=== PATIENT | female | born 1950 | race Hispanic/Latino ===

== ENCOUNTER 2022-04-30 08:18 | Inpatient (IN) | payer MEDICARE, MEDICAID ==
[~2022-04-30] VITALS: Ht 152.4 cm; Wt 63.5 kg
[2022-04-30] MEDS ORDERED: ONDANSETRON HCL INJ 2MG/ML 2ML 2 MG/ML VIAL IV STA (08:33)
[2022-04-30] MEDS ORDERED: SODIUM CHLORIDE 0.9% 1000ML 1,000 ML IV ONE (08:45)
[2022-04-30 08:58] LABS: BASOPHILS # (AUTO) 0.1 (0.0-0.1); BASOPHILS % 0.6 % (0.0-1.0); EOSINOPHILS # (AUTO) 0.1 (0.0-0.4); EOSINOPHILS % 0.7 % (0.0-6.0); HEMOGLOBIN 12.8 g/dL (12.0-16.0); LYMPHOCYTES # (AUTO) 1.8 (1.0-3.2); LYMPHOCYTES % 10.5 % (18.0-39.1); MEAN CORPUSCULAR HEMOGLOBIN 30.8 pg (28-32); MEAN CORPUSCULAR HGB CONC 34.6 g/dL (31-35); MEAN CORPUSCULAR VOLUME 89.2 fL (81-99); MONOCYTES % 5.6 % (4.4-11.3); NEUTROPHILS # (AUTO) 12.5 (2.1-6.9); PLATELET COUNT 287 x10e3/uL (140-360); RED BLOOD COUNT 4.15 x10e6/uL (3.6-5.1); RED CELL DISTRIBUTION WIDTH 14.6 % (11.7-14.4)
[2022-04-30 09:35] LABS: ALBUMIN 2.6 g/dL (3.5-5.0); ALBUMIN/GLOBULIN RATIO 0.5 (0.8-2.0); ANION GAP 17.5 mmol/L (8-16); CALCIUM 9.7 mg/dL (8.4-10.2); CREATININE, SERUM 0.93 mg/dL (0.57-1.11); POTASSIUM 3.5 mmol/L (3.5-5.1)
[2022-04-30 09:56] LABS: CLARITY,URINE HAZY (CLEAR); COLOR,URINE YELLOW (YELLOW); KETONES,URINE 1+ (NEGATIVE); LEUKOCYTE ESTERASE ,URINE LARGE (NEGATIVE); NITRITE,URINE NEGATIVE (NEGATIVE); PROTEIN,URINE DIPSTICK 2+ (NEGATIVE); URINE UROBILINOGEN 0.2 mg/dL (0.2 - 1); WBC,URINE (MAN) >50 /HPF (0-5)
[2022-04-30 09:57] LABS: BACTERIA,URINE MODERATE /HPF; EPITHELIAL CELLS,URINE MANY /LPF; RBC,URINE 0-5 /HPF (0-5)
[2022-04-30] MEDS ORDERED: IOPAMIDOL 370 MG/ML 100 ML INFUS..BTL INJ ONE ×2 (10:14→11:07)
[2022-04-30 10:16] LABS: BAND NEUTROPHILS % (MANUAL) 10 %; EOSINOPHILS % (MANUAL) 1 % (0-7); LYMPHOCYTES % (MANUAL) 13 % (19-48); METAMYELOCYTES % (MANUAL) 2 % (0-0); MONOCYTES % (MANUAL) 5 % (3.4-9.0); NEUTROPHILS % (MANUAL) 69 % (40-74)
[2022-04-30 10:17] LABS: PLATELET ESTIMATE ADEQUATE; PLATELET MORPHOLOGY COMMENT NORMAL; RBC MORPHOLOGY COMMENT NORMAL
[2022-04-30] MEDS ORDERED: CEFTRIAXONE 1 GM VIAL IV ONE (11:15)
[2022-04-30] MEDS ORDERED: CEFTRIAXONE 1 GM in SODIUM CHLORIDE 0.9% 100 ML IV ONE (11:30)
[2022-04-30] MEDS ORDERED: LEVOFLOXACIN 750MG/D5W 150ML 150 ML IV ONE (11:45)
[2022-04-30] MEDS ORDERED: ONDANSETRON HCL INJ 2MG/ML 2ML 2 MG/ML VIAL IV PRN (12:00)
[2022-04-30] MEDS ORDERED: METRONIDAZOLE 500MG/NS 100ML 100 ML IV ONE (12:00)
[2022-04-30] MEDS ORDERED: Morphine 4mg INJECTION 4 MG/ML INJ IV PRN (12:00)
[2022-04-30] MEDS: SODIUM CHLORIDE 0.9% 1000ML 1,000 ML IV SCH ×2 (12:00→21:53)
[2022-04-30 16:19] VITALS: BP 126/70
[2022-04-30] MEDS ORDERED: ATORVASTATIN CA20 MG PO (16:22)
[2022-04-30] MEDS ORDERED: LOSARTAN POTASS50 MG PO (16:22)
[2022-04-30] MEDS ORDERED: LEVOTHYROXINE50 MCG PO (16:22)
[2022-04-30 16:29] VITALS: BP 126/70
[2022-04-30 17:04] VITALS: BP 126/70
[2022-04-30 21:00] VITALS: BP 125/74
[2022-04-30] MEDS: METRONIDAZOLE 500MG/NS 100ML 100 ML IV SCH (21:46)
[2022-05-01] VITALS (8 sets, daily range): BP systolic 103–130; BP diastolic 61–73
[2022-05-01] MEDS ORDERED: HYDRALAZINE HCL 20 MG/ML VIAL IV PRN (03:00)
[2022-05-01 05:15] LABS: BASOPHILS # (AUTO) 0.1 (0.0-0.1); BASOPHILS % 0.4 % (0.0-1.0); EOSINOPHILS % 0.2 % (0.0-6.0); HEMOGLOBIN 10.8 g/dL (12.0-16.0); LYMPHOCYTES % 10.5 % (18.0-39.1); MEAN CORPUSCULAR HEMOGLOBIN 30.7 pg (28-32); MEAN CORPUSCULAR HGB CONC 34.8 g/dL (31-35); MEAN CORPUSCULAR VOLUME 88.1 fL (81-99); MONOCYTES # (AUTO) 1.5 (0.2-0.8); MONOCYTES % 8.1 % (4.4-11.3); NEUTROPHILS # (AUTO) 13.2 (2.1-6.9); NEUTROPHILS % 70.9 % (38.7-80.0); PLATELET COUNT 308 x10e3/uL (140-360); RED BLOOD COUNT 3.52 x10e6/uL (3.6-5.1); RED CELL DISTRIBUTION WIDTH 14.6 % (11.7-14.4)
[2022-05-01] MEDS: METRONIDAZOLE 500MG/NS 100ML 100 ML IV SCH ×3 (05:19→21:26)
[2022-05-01 05:24] LABS: INR 1.26; PROTHROMBIN TIME 16.9 seconds (11.9-14.5)
[2022-05-01 05:25] LABS: PARTIAL THROMBOPLASTIN TIME 31.8 seconds (23.8-35.5)
[2022-05-01 05:34] LABS: ALBUMIN 1.9 g/dL (3.5-5.0); ALBUMIN/GLOBULIN RATIO 0.4 (0.8-2.0); ANION GAP 16.4 mmol/L (8-16); CALCIUM 8.2 mg/dL (8.4-10.2); CREATININE, SERUM 0.66 mg/dL (0.57-1.11); POTASSIUM 3.4 mmol/L (3.5-5.1)
[2022-05-01 06:26] LABS: BAND NEUTROPHILS % (MANUAL) 3 %; LYMPHOCYTES % (MANUAL) 17 % (19-48); METAMYELOCYTES % (MANUAL) 4 % (0-0); MONOCYTES % (MANUAL) 9 % (3.4-9.0); MYELOCYTES % (MANUAL) 2 % (0-0); NEUTROPHILS % (MANUAL) 62 % (40-74); PLATELET ESTIMATE ADEQUATE; PLATELET MORPHOLOGY COMMENT NORMAL
[2022-05-01] MEDS: SODIUM CHLORIDE 0.9% 1000ML 1,000 ML IV SCH ×2 (08:45→18:00)
[2022-05-01] MEDS: LEVOFLOXACIN 500MG/D5W 100ML 100 ML IV SCH (11:30)
[2022-05-01] MEDS ORDERED: PROPOFOL IV EMULSION 10 MG/ML 20 ML VIAL ONE (12:29)
[2022-05-01] MEDS ORDERED: NEOSTIGMINE 1 MG/ML 10ML VIAL ONE (12:29)
[2022-05-01] MEDS ORDERED: EPHEDRINE SULFATE INJ 50 MG/ML VIAL ONE (12:29)
[2022-05-01] MEDS ORDERED: DEXAMETHASONE SOD PHOS INJ 4 MG/ML SDV ONE (12:29)
[2022-05-01] MEDS ORDERED: ONDANSETRON HCL INJ 2MG/ML 2ML 2 MG/ML VIAL ONE (12:29)
[2022-05-01] MEDS ORDERED: KETOROLAC TROMETHAMINE 30 MG/ML VIAL ONE (12:29)
[2022-05-01] MEDS ORDERED: SEVOFLURANE INHAL SOLN 250 ML PEN BTL ONE (12:29)
[2022-05-01] MEDS ORDERED: POVIDONE IODINE 0.05% 0.05 % ML PO ONE (12:29)
[2022-05-01] MEDS ORDERED: ROCURONIUM BROMIDE 10 MG/ML 5ML VIAL IV ONE (12:29)
[2022-05-01] MEDS ORDERED: GLYCOPYRROLATE INJ 0.2 MG/ML VIAL ONE (12:29)
[2022-05-01] MEDS ORDERED: MIDAZOLAM HCL 2 MG/2 ML VIAL ONE (13:12)
[2022-05-01] MEDS ORDERED: FENTANYL CITRATE/PF 100MCG/2 ML INJ ONE (13:12)
[2022-05-01] MEDS ORDERED: BUPIVACAINE 0.25% 30ML SDV ONE (13:28)
[2022-05-01] MEDS ORDERED: HYDROMORPHONE 1MG/1ML INJ IV PRN (15:15)
[2022-05-01] MEDS ORDERED: SUGAMMADEX SODIUM 200 MG/2 ML VIAL IV ONE (15:37)
[2022-05-02] MEDS: SODIUM CHLORIDE 0.9% 1000ML 1,000 ML IV SCH ×2 (04:00→14:25)
[2022-05-02] MEDS: METRONIDAZOLE 500MG/NS 100ML 100 ML IV SCH ×3 (05:28→21:01)
[2022-05-02 05:30] VITALS: BP 130/81
[2022-05-02 05:33] LABS: BASOPHILS # (AUTO) 0.1 (0.0-0.1); BASOPHILS % 0.3 % (0.0-1.0); HEMATOCRIT 27.7 % (34.2-44.1); HEMOGLOBIN 9.5 g/dL (12.0-16.0); LYMPHOCYTES # (AUTO) 1.9 (1.0-3.2); LYMPHOCYTES % 9.1 % (18.0-39.1); MEAN CORPUSCULAR HEMOGLOBIN 30.7 pg (28-32); MEAN CORPUSCULAR HGB CONC 34.3 g/dL (31-35); MEAN CORPUSCULAR VOLUME 89.6 fL (81-99); MONOCYTES % 4.8 % (4.4-11.3); NEUTROPHILS # (AUTO) 15.3 (2.1-6.9); NEUTROPHILS % 75.4 % (38.7-80.0); PLATELET COUNT 338 x10e3/uL (140-360); RED BLOOD COUNT 3.09 x10e6/uL (3.6-5.1); RED CELL DISTRIBUTION WIDTH 15.5 % (11.7-14.4)
[2022-05-02 06:02] LABS: ANION GAP 15.4 mmol/L (8-16); CALCIUM 7.5 mg/dL (8.4-10.2); CREATININE, SERUM 0.63 mg/dL (0.57-1.11); POTASSIUM 3.4 mmol/L (3.5-5.1)
[2022-05-02 07:03] LABS: ALBUMIN 1.9 g/dL (3.5-5.0); ALBUMIN/GLOBULIN RATIO 0.5 (0.8-2.0); ANION GAP 16.4 mmol/L (8-16); CALCIUM 7.4 mg/dL (8.4-10.2); CREATININE, SERUM 0.64 mg/dL (0.57-1.11); POTASSIUM 3.4 mmol/L (3.5-5.1)
[2022-05-02 08:00] VITALS: BP 129/71
[2022-05-02 08:39] LABS: BAND NEUTROPHILS % (MANUAL) 4 %; LYMPHOCYTES % (MANUAL) 5 % (19-48); MONOCYTES % (MANUAL) 2 % (3.4-9.0); MYELOCYTES % (MANUAL) 1 % (0-0); NEUTROPHILS % (MANUAL) 88 % (40-74); PLATELET ESTIMATE ADEQUATE; PLATELET MORPHOLOGY COMMENT NORMAL; RBC MORPHOLOGY COMMENT NORMAL
[2022-05-02 09:56] VITALS: BP 130/81
[2022-05-02 11:45] VITALS: BP 115/75
[2022-05-02] MEDS: LEVOFLOXACIN 500MG/D5W 100ML 100 ML IV SCH (12:55)
[2022-05-02 16:22] VITALS: BP 135/79
[2022-05-02 21:04] VITALS: BP 146/80
[2022-05-03] VITALS (7 sets, daily range): BP systolic 137–154; BP diastolic 71–89
[2022-05-03] MEDS: METRONIDAZOLE 500MG/NS 100ML 100 ML IV SCH ×3 (05:30→22:17)
[2022-05-03 06:51] LABS: BASOPHILS # (AUTO) 0.1 (0.0-0.1); BASOPHILS % 0.7 % (0.0-1.0); EOSINOPHILS # (AUTO) 0.2 (0.0-0.4); HEMATOCRIT 28.7 % (34.2-44.1); HEMOGLOBIN 9.9 g/dL (12.0-16.0); LYMPHOCYTES # (AUTO) 2.6 (1.0-3.2); LYMPHOCYTES % 16.5 % (18.0-39.1); MEAN CORPUSCULAR HEMOGLOBIN 30.5 pg (28-32); MEAN CORPUSCULAR HGB CONC 34.5 g/dL (31-35); MEAN CORPUSCULAR VOLUME 88.3 fL (81-99); MONOCYTES # (AUTO) 0.9 (0.2-0.8); MONOCYTES % 5.8 % (4.4-11.3); NEUTROPHILS # (AUTO) 10.1 (2.1-6.9); NEUTROPHILS % 64.4 % (38.7-80.0); PLATELET COUNT 415 x10e3/uL (140-360); RED BLOOD COUNT 3.25 x10e6/uL (3.6-5.1); RED CELL DISTRIBUTION WIDTH 15.4 % (11.7-14.4)
[2022-05-03 07:17] LABS: ANION GAP 16.2 mmol/L (8-16); CALCIUM 7.7 mg/dL (8.4-10.2); CREATININE, SERUM 0.55 mg/dL (0.57-1.11); POTASSIUM 3.2 mmol/L (3.5-5.1)
[2022-05-03 08:54] LABS: BAND NEUTROPHILS % (MANUAL) 1 %; EOSINOPHILS % (MANUAL) 2 % (0-7); LYMPHOCYTES % (MANUAL) 9 % (19-48); METAMYELOCYTES % (MANUAL) 1 % (0-0); MONOCYTES % (MANUAL) 4 % (3.4-9.0); MYELOCYTES % (MANUAL) 3 % (0-0); NEUTROPHILS % (MANUAL) 80 % (40-74); PLATELET ESTIMATE ADEQUATE; PLATELET MORPHOLOGY COMMENT NORMAL; RBC MORPHOLOGY COMMENT NORMAL
[2022-05-03] MEDS: PANTOPRAZOLE SOD 40 MG TABEC PO SCH (09:27)
[2022-05-03] MEDS ORDERED: HYDROCODONE/APAP 5MG-325MG TAB PO PRN (10:30)
[2022-05-03] MEDS: LEVOFLOXACIN 500MG/D5W 100ML 100 ML IV SCH (11:51)
[2022-05-03] MEDS: SODIUM CHLORIDE 0.9% 1000ML 1,000 ML IV SCH ×3 (11:51→22:17)
[2022-05-04 00:30] VITALS: BP 125/75
[2022-05-04] MEDS: METRONIDAZOLE 500MG/NS 100ML 100 ML IV SCH (05:18)
[2022-05-04 06:17] VITALS: BP 156/87
[2022-05-04 08:00] VITALS: BP 149/89
[2022-05-04] MEDS: PANTOPRAZOLE SOD 40 MG TABEC PO SCH (08:11)
[2022-05-04 08:26] VITALS: BP 149/89
[2022-05-04 10:16] LABS: BASOPHILS # (AUTO) 0.1 (0.0-0.1); BASOPHILS % 0.6 % (0.0-1.0); EOSINOPHILS # (AUTO) 0.2 (0.0-0.4); EOSINOPHILS % 1.4 % (0.0-6.0); LYMPHOCYTES # (AUTO) 2.6 (1.0-3.2); LYMPHOCYTES % 20.2 % (18.0-39.1); MEAN CORPUSCULAR HEMOGLOBIN 30.3 pg (28-32); MEAN CORPUSCULAR HGB CONC 33.3 g/dL (31-35); MEAN CORPUSCULAR VOLUME 90.9 fL (81-99); MONOCYTES # (AUTO) 0.7 (0.2-0.8); MONOCYTES % 5.5 % (4.4-11.3); NEUTROPHILS # (AUTO) 8.1 (2.1-6.9); NEUTROPHILS % 63.2 % (38.7-80.0); PLATELET COUNT 509 x10e3/uL (140-360); RED BLOOD COUNT 3.63 x10e6/uL (3.6-5.1); RED CELL DISTRIBUTION WIDTH 15.1 % (11.7-14.4)
[2022-05-04] MEDS ORDERED: POTASSIUM CHLORIDE 20 MEQ TAB CR PO ONE (10:30)
[2022-05-04 10:40] LABS: ALBUMIN 2.2 g/dL (3.5-5.0); ALBUMIN/GLOBULIN RATIO 0.5 (0.8-2.0); CALCIUM 8.1 mg/dL (8.4-10.2); CREATININE, SERUM 0.64 mg/dL (0.57-1.11)
[2022-05-04 11:29] LABS: BAND NEUTROPHILS % (MANUAL) 3 %; EOSINOPHILS % (MANUAL) 2 % (0-7); LYMPHOCYTES % (MANUAL) 21 % (19-48); METAMYELOCYTES % (MANUAL) 2 % (0-0); MONOCYTES % (MANUAL) 4 % (3.4-9.0); MYELOCYTES % (MANUAL) 2 % (0-0); NEUTROPHILS % (MANUAL) 66 % (40-74)
[2022-05-04 11:30] LABS: PLATELET ESTIMATE SLIGHTLY INCREASED; PLATELET MORPHOLOGY COMMENT NORMAL; RBC MORPHOLOGY COMMENT NORMAL
[2022-05-04 12:25] VITALS: BP 146/92
== END 2022-05-04 12:56 | disposition home or self-care (01) | DRG 853 ==
LOC: ER 08:25 → ERHOLD 11:56 → MED/SURG3 15:19 → OBSVTOIN 05-01 15:06
PROVIDERS: ADMIT Internal Medicine; ATTEND Internal Medicine
PROC: 0F904ZZ Drainage of Liver, Percutaneous Endoscopic Approach (ICD-10-PCS; 2022-05-01)
PROC: 3E03329 Introduction of Other Anti-infective into Peripheral Vein, Percutaneous Approach (ICD-10-PCS; 2022-05-01)
PROC: 0FT44ZZ Resection of Gallbladder, Percutaneous Endoscopic Approach (ICD-10-PCS; principal; 2022-05-01 13:11)
DX: A41.9 Sepsis, unspecified organism (principal); K75.0 Abscess of liver; K80.00 Calculus of gallbladder with acute cholecystitis without obstruction; D76.3 Other histiocytosis syndromes; K82.A2 Perforation of gallbladder in cholecystitis; K82.8 Other specified diseases of gallbladder; K82.A1 Gangrene of gallbladder in cholecystitis; E03.9 Hypothyroidism, unspecified; I10 Essential (primary) hypertension; N83.8 Other noninflammatory disorders of ovary, fallopian tube and broad ligament; Z88.0 Allergy status to penicillin; R73.9 Hyperglycemia, unspecified; Z20.822 Contact with and (suspected) exposure to COVID-19
CPT/HCPCS: 0223U; 36415; 74177; 80048; 80053; 81001; 83690; 85025; 85610; 85730; 86304; 88304; 93005; 99284; C1766; G0378; J0696; J1100; J1170; J1885; J1956; J2250; J2270; J2405; J2710; J3010; J7030; J7050; Q9967